=== PATIENT | female | born 1955 | race African-American/Black ===

== ENCOUNTER 2018-04-03 23:02 | Inpatient (IN) | payer OTHER ==
[~2018-04-03] VITALS: Ht 165.1 cm; Wt 166.0 kg
[2018-04-03] MEDS ORDERED: ALBUTEROL (0.083%) 2.5MG/3ML NEB HHN STA (23:48)
[2018-04-04 01:03] LABS: CHLORIDE 106 mEq/L (98-107); PROTHROMBIN TIME 10.1 sec (9.1-11.1)
[2018-04-04 01:04] LABS: EOSINOPHILS % 1.7 % (0.0-5.0); HEMATOCRIT. 40.8 % (36.0-48.0); HEMOGLOBIN. 13.4 g/dL (12.0-16.0); LYMPHOCYTES % 24.8 % (20.0-50.0); MEAN CORPUSCULAR HEMOGLOBIN 28.4 pg (28.0-32.0); MEAN CORPUSCULAR VOLUME 86.6 fL (81.0-99.0); MEAN PLATELET VOLUME 9.2 fl (7.4-10.4); MONOCYTES % 5.1 % (2.0-8.0); NEUTROPHILS % 67.4 % (40.0-76.0); PLATELET 185 x1000/uL (130-400); RED BLOOD CELL COUNT 4.72 mill/uL (4.2-5.4); RED CELL DISTRIBUTION WIDTH 16.2 % (11.6-14.6)
[2018-04-04] MEDS ORDERED: FUROSEMIDE 20MG/2ML VIAL IVP SCH (01:30)
[2018-04-04 01:56] LABS: BG CARBOXYHEMOGLOBIN 0.9 % (0.5-1.5); BG DEOXYHEMOGLOBIN 5.8 % (0.0-5.0); BG FRACTION INSPIRED OXYGEN 40; BG HCO3 ACT 27.5 mmol/L (22.0-26.0); BG METHEMOGLOBIN 0.1 % (0.0-1.5); BG OXYGEN SATURATION 94.1 % (92.0-98.5); BG OXYHEMOGLOBIN 93.2 % (94.0-97.0); BG PCO2 51.1 mmHg (35.0-45.0); BG PH 7.348 (7.350-7.450); BG PO2 79.9 mmHg (75.0-100.0); BG SAMPLE SITE RIGHT RADIAL; BG TOTAL HEMOGLOBIN 13.6 g/dL (12.0-18.0); BG VENT MODE NASAL CANNULA
[2018-04-04] MEDS ORDERED: OXYCODONE HCL/ACETAMINOPHEN 5/325MG TABLET PO ONE (06:00)
[2018-04-04] MEDS ORDERED: DOCUSATE SODIUM 100MG CAPSULE PO PRN (06:15)
[2018-04-04] MEDS ORDERED: HYDROCODONE/ACETAMINOPHEN 5/325MG TABLET PO PRN (06:15)
[2018-04-04] MEDS ORDERED: ACETAMINOPHEN 325MG TABLET PO PRN (06:15)
[2018-04-04] MEDS ORDERED: IPRATROPIUM/ALBUTEROL 0.5-3(2.5)MG/3ML NEB INH PRN (06:15)
[2018-04-04] MEDS ORDERED: GUAIFENESIN 200MG/10ML SUGAR FREE UDC PO PRN (06:15)
[2018-04-04] MEDS: AMLODIPINE 10MG TABLET PO SCH (09:08)
[2018-04-04] MEDS ORDERED: ONDANSETRON 4MG ODT PO PRN (09:15)
[2018-04-04 10:00] VITALS: BP 106/66
[2018-04-04 10:26] VITALS: BP 106/66
[2018-04-04 12:00] VITALS: BP 98/65
[2018-04-04] MEDS: ENOXAPARIN 40MG/0.4ML SYR SUBCUT SCH ×2 (12:31→20:46)
[2018-04-04] MEDS: FUROSEMIDE 40MG/4ML VIAL IV SCH (15:25)
[2018-04-04 16:00] VITALS: BP 100/61
[2018-04-04 16:04] LABS: CREATINE KINASE MB FRACTION 2.6 ng/mL (0.5-3.6)
[2018-04-04] MEDS ORDERED: LATA7.5D OP (16:39)
[2018-04-04] MEDS ORDERED: FURO40TA5 PO (16:39)
[2018-04-04] MEDS ORDERED: LEVO150T8 MT (16:39)
[2018-04-04] MEDS ORDERED: BRIM5DRO6 EACHEYE (16:42)
[2018-04-04] MEDS ORDERED: DORZ10DR8 EACHEYE (16:42)
[2018-04-04 20:00] VITALS: BP 99/61
[2018-04-04 23:27] LABS: CREATINE KINASE MB FRACTION 2.6 ng/mL (0.5-3.6)
[2018-04-05] VITALS (18 sets, daily range): BP systolic 88–134; BP diastolic 55–86
[2018-04-05] MEDS: LEVOTHYROXINE SODIUM 150MCG TABLET PO SCH (06:21)
[2018-04-05] MEDS ORDERED: MEDICATION NOT ON FORMULARY EA (Brimonidine Tartrate 1 DROP) EACHEYE SCH ×2 (06:45→07:45)
[2018-04-05] MEDS ORDERED: LATANOPROST OP SCH (06:45)
[2018-04-05 07:27] LABS: BASOPHILS % 0.8 % (0.0-2.0); EOSINOPHILS % 2.5 % (0.0-5.0); HEMATOCRIT. 43.1 % (36.0-48.0); HEMOGLOBIN. 14.2 g/dL (12.0-16.0); MEAN CORPUSCULAR HEMOGLOBIN 28.5 pg (28.0-32.0); MEAN CORPUSCULAR VOLUME 86.6 fL (81.0-99.0); MEAN PLATELET VOLUME 9.5 fl (7.4-10.4); MONOCYTES % 6.4 % (2.0-8.0); NEUTROPHILS % 62.3 % (40.0-76.0); PLATELET 163 x1000/uL (130-400); RED BLOOD CELL COUNT 4.98 mill/uL (4.2-5.4)
[2018-04-05 08:11] LABS: CHLORIDE 105 mEq/L (98-107)
[2018-04-05 08:26] LABS: LDL CHOLESTEROL 97 mg/dL (5-100)
[2018-04-05 08:27] LABS: HDL CHOLESTEROL 48 mg/dL (40-59)
[2018-04-05] MEDS: ENOXAPARIN 40MG/0.4ML SYR SUBCUT SCH (08:35)
[2018-04-05] MEDS: FUROSEMIDE 40MG/4ML VIAL IV SCH (08:35)
[2018-04-05] MEDS: AMLODIPINE 10MG TABLET PO SCH (08:35)
[2018-04-05] MEDS ORDERED: BRIMONIDINE 0.2% OPHTH DROPS 5ML EACHEYE SCH (09:00)
[2018-04-05] MEDS ORDERED: ENOXAPARIN 120MG/0.8ML SYR SUBCUT NR (10:00)
[2018-04-05] MEDS ORDERED: CLOPIDOGREL 75MG TABLET PO NR (10:00)
[2018-04-05] MEDS: ASPIRIN 81MG TABLET PO SCH (10:27)
[2018-04-05] MEDS: BRIMONIDINE 0.2% OPHTH DROPS 5ML BOTHEYE SCH ×3 (13:00→22:26)
[2018-04-05] MEDS: LATANOPROST 0.005% OPHTH DROPS 2.5ML BOTHEYE SCH ×3 (13:00→22:26)
[2018-04-05] MEDS: DORZOLAMIDE 2% OPHTH 10 ML BOTTLE EACHEYE SCH ×3 (13:00→22:26)
[2018-04-05] MEDS: SODIUM CHLORIDE 0.9% 1,000 ML IV SCH (13:07)
[2018-04-05 15:38] LABS: T4 FREE 1.35 ng/dL (0.76-1.46)
[2018-04-05 15:39] LABS: CREATINE KINASE MB FRACTION 1.6 ng/mL (0.5-3.6)
[2018-04-05 15:52] LABS: *AMPHETAMINES SCREEN URINE NEGATIVE (NEGATIVE); *BARBITURATES SCREEN URINE NEGATIVE (NEGATIVE); *BENZODIAZEPINES SCREEN URINE NEGATIVE (NEGATIVE)
[2018-04-05 15:53] LABS: *COCAINE SCREEN URINE NEGATIVE (NEGATIVE); CANNABINOID URINE SCREEN NEGATIVE (NEGATIVE); METHADONE URINE SCREEN NEGATIVE (NEGATIVE); OPIATES URINE SCREEN NEGATIVE (NEGATIVE); PHENCYCLIDINE URINE SCREEN NEGATIVE (NEGATIVE)
[2018-04-05] MEDS: ENOXAPARIN 150MG/ML SYR SUBCUT SCH (22:26)
[2018-04-06] VITALS (24 sets, daily range): BP systolic 101–147; BP diastolic 53–78
[2018-04-06 00:01] LABS: CREATINE KINASE MB FRACTION 1.2 ng/mL (0.5-3.6)
[2018-04-06] MEDS: SODIUM CHLORIDE 0.9% 1,000 ML IV SCH ×2 (03:26→18:00)
[2018-04-06 05:59] LABS: BASOPHILS % 0.6 % (0.0-2.0); HEMATOCRIT. 37.5 % (36.0-48.0); HEMOGLOBIN. 12.4 g/dL (12.0-16.0); LYMPHOCYTES % 24.3 % (20.0-50.0); MEAN CORPUSCULAR HEMOGLOBIN 28.5 pg (28.0-32.0); MEAN CORPUSCULAR VOLUME 86.3 fL (81.0-99.0); MEAN PLATELET VOLUME 9.5 fl (7.4-10.4); MONOCYTES % 8.3 % (2.0-8.0); NEUTROPHILS % 62.8 % (40.0-76.0); PLATELET 178 x1000/uL (130-400); RED BLOOD CELL COUNT 4.34 mill/uL (4.2-5.4); RED CELL DISTRIBUTION WIDTH 15.9 % (11.6-14.6)
[2018-04-06 06:00] LABS: CHLORIDE 105 mEq/L (98-107)
[2018-04-06 06:10] LABS: CREATINE KINASE 376 IU/L (26-192)
[2018-04-06 06:12] LABS: CREATINE KINASE MB FRACTION < 1.0 ng/mL (0.5-3.6)
[2018-04-06] MEDS: LEVOTHYROXINE SODIUM 150MCG TABLET PO SCH (07:50)
[2018-04-06] MEDS ORDERED: CLOPIDOGREL 75MG TABLET PO SCH (09:00)
[2018-04-06 09:09] LABS: BG BASE EXCESS 1.9 mmol/L (-2.0-2.0); BG CARBOXYHEMOGLOBIN 0.8 % (0.5-1.5); BG DEOXYHEMOGLOBIN 5.3 % (0.0-5.0); BG FRACTION INSPIRED OXYGEN 32; BG HCO3 ACT 28.6 mmol/L (22.0-26.0); BG METHEMOGLOBIN 0.1 % (0.0-1.5); BG OXYGEN SATURATION 94.7 % (92.0-98.5); BG OXYHEMOGLOBIN 93.8 % (94.0-97.0); BG PCO2 53.7 mmHg (35.0-45.0); BG PH 7.344 (7.350-7.450); BG PO2 79.3 mmHg (75.0-100.0); BG SAMPLE SITE LEFT BRACHIAL; BG TOTAL HEMOGLOBIN 12.4 g/dL (12.0-18.0); BG VENT MODE NASAL CANNULA
[2018-04-06] MEDS: ASPIRIN 81MG TABLET PO SCH (09:33)
[2018-04-06] MEDS: AMLODIPINE 10MG TABLET PO SCH (09:33)
[2018-04-06] MEDS: BRIMONIDINE 0.2% OPHTH DROPS 5ML BOTHEYE SCH ×2 (09:34→21:32)
[2018-04-06] MEDS: LATANOPROST 0.005% OPHTH DROPS 2.5ML BOTHEYE SCH ×2 (09:34→21:32)
[2018-04-06] MEDS: ENOXAPARIN 150MG/ML SYR SUBCUT SCH ×2 (09:34→21:32)
[2018-04-06] MEDS: DORZOLAMIDE 2% OPHTH 10 ML BOTTLE EACHEYE SCH ×2 (09:34→21:32)
[2018-04-06] MEDS: FUROSEMIDE 40MG/4ML VIAL IV SCH (09:34)
[2018-04-06] MEDS ORDERED: PROPOFOL 10MG/ML 100ML 100 ML IV PRN (18:15)
[2018-04-07] VITALS: BP 113/63
[2018-04-07 00:39] VITALS: BP 113/63
== END 2018-04-07 00:14 | disposition short-term general hospital (02) | DRG 73 ==
LOC: ER 23:02 → EDBEDREQTM 04-04 01:29 → EDBEDREQ 04-04 01:29 → SUPCPDRO 04-04 06:13 → ENRESERV 04-04 08:07 → 6WST 04-04 08:07 → CVICU 04-05 12:39
PROVIDERS: ADMIT Hospitalist; ATTEND Hospitalist
DX: G90.8 Other disorders of autonomic nervous system (principal); J96.01 Acute respiratory failure with hypoxia; N17.9 Acute kidney failure, unspecified; I31.3 Pericardial effusion (noninflammatory); Z68.44 Body mass index [BMI] 60.0-69.9, adult; E66.01 Morbid (severe) obesity due to excess calories; E03.9 Hypothyroidism, unspecified; R73.9 Hyperglycemia, unspecified; G47.30 Sleep apnea, unspecified; H40.9 Unspecified glaucoma; M17.11 Unilateral primary osteoarthritis, right knee; Z90.49 Acquired absence of other specified parts of digestive tract; Z98.84 Bariatric surgery status
CPT/HCPCS: 36415; 36600; 51702; 70450; 71045; 74176; 78580; 80053; 80061; 80305; 82375; 82550; 82553; 82805; 82962; 83036; 83880; 84132; 84439; 84443; 84484; 85025; 85379; 85610; 93005; 93306; 93970; 94640; 96374; 99285; J1650; J1940; J7030; J7611; A4315